=== PATIENT | male | born 1995 | race Two or more races ===

== ENCOUNTER 2024-10-10 10:29 | Emergency (ER) | payer BC, SELFPAY ==
--- NOTE | ~2024-10-10 | XR_ITS ---
EXAMINATION: XR CHEST 2 VIEWS HISTORY: congested COMPARISON: There are no prior studies for comparison. FINDINGS: PA and lateral views of the chest are submitted. The lungs are expanded and clear. There is no pleural effusion, pneumothorax, or pulmonary vascular congestion. The heart is normal in size. The bones are intact. XR/XR chest 2V IMPRESSION: Normal examination of the chest. Electronically signed by: Reji Lyn MD 10/10/2024 11:32 AM EDT
[2024-10-10 10:39] VITALS: BP 118/73; PULSE 83; RESP 18; TEMP 37; O2SAT 97; BMI 18.2
[2024-10-10 11:02] LABS: IDNOW Serial# 58CA691E; Strep A Nucleic Acid Negative (Negative)
[2024-10-10 11:32] LABS: Influenza A PCR POSITIVE (Negative); Influenza B PCR NEGATIVE (Negative); Resp Syncy Virus RNA Qual PCR NEGATIVE (Negative); SARS COV2 PCR INHOUSE NEGATIVE (Negative)
--- NOTE | 2024-10-10 11:43 | ED.URI ---
HPI - URI/Sore Throat General Chief Complaint: Upper Respiratory Symptoms Stated Complaint: Asthma Attacks, Trouble Breathing, Congested Time Seen by Provider: 10/10/24 11:52 Source: patient and RN notes reviewed Mode of arrival: ambulatory Limitations: no limitations History of Present Illness ED Provider: Elizabeth Monaco PA-C HPI Narrative: This is a 28-year-old male, with a history of asthma, who presents emergency department with complaints of body aches, congestion, cough for the last 3 days. Patient states that his symptoms started 3 days ago, reporting intermittent subjective fevers and chills. Did has any sick contacts. He has been using in his inhaler, and taking Mucinex which has provided him with some relief. Denies any severe chest pain, abdominal pain, nausea, vomiting or diarrhea. No urinary symptoms. No other complaints or concerns at this time. MD elicited complaint: fever (Subjective), cough, rhinorrhea and nasal congestion Pertinent past history: asthma Onset (ago): day(s) Consistency: constant Severity: moderate Exacerbating factors: nothing Relieving factors: nothing Associated symptoms: fever and chills Treatments prior to arrival: none Related Data Previous Rx's ?Medication ?Instructions ?Recorded acetaminophen 500 mg tablet 1,000 mg (2 x 500 mg) PO Q8H PRN 10/10/24 (Tylenol Extra Strength) fever or pain #30 tabs albuterol sulfate 90 mcg/actuation 2 puff inhalation Q4-6H PRN 10/10/24 aerosol inhaler shortness of breath or wheezing #8.5 grams ibuprofen 600 mg tablet 600 mg PO Q6H PRN pain #30 tabs 10/10/24 Allergies Allergy/AdvReac Type Severity Reaction Status Date / Time No Known Allergies Allergy Verified 10/10/24 10:41 Review of Systems Review of Systems: Yes all other systems are reviewed and are negative Constitutional: Constitutional: Reports as per [facility] Social History Social History Advance Directives: No Advance Directives Information Provided: Yes Physical Exam Vital Signs: Vital Signs: Last Vital Signs Temp 98.6 F 10/10/24 10:39 Pulse 83 10/10/24 10:39 Resp 18 10/10/24 10:39 BP 118/73 10/10/24 10:39 Pulse Ox 97 10/10/24 10:39 O2 Del Method Room Air 10/10/24 10:39 BMI result Body Mass Index 18.2 Const: General: cooperative, comfortable and no acute distress Orientation/consciousness: patient oriented x3 Limitations: no limitations HEENT: Head: Yes normal to inspection, Yes normocephalic and Yes atraumatic Ears: hearing grossly normal bilaterally and TM's normal bilaterally General nose exam: Normal external nose present Face and sinus: Yes normal facial exam Mouth: Normal oral and palatal mucosa present, oropharynx normal and moist mucous membranes Throat: Yes posterior oropharynx normal, Yes tonsils normal and Yes uvula midline Eyes: General: appearance normal, both eyes and all related structures Eyelids: Yes eyelids normal Conjunctivae: conjunctivae normal Sclerae: sclerae normal Pupils: Equal, round and reactive pupils present EOM: EOMs intact bilaterally Neck: Neck: Yes normal visual inspection, Yes full ROM and Yes no lymphadenopathy Lymphatic: no lymphadenopathy noted Chest: Chest palpation & inspection: normal inspection of the chest Resp: Effort & Inspection: normal respiratory effort and able to speak in complete sentences Auscultation: clear to auscultation bilaterally, no crackles, no rales, no rhonchi and no wheezes Cardio: Rate: regular rate Rhythm: regular rhythm Heart sounds: S1 normal heart sound present and S2 normal heart sound present GI: Inspection: Yes normal to inspection Skin: General skin exam: no rashes or lesions noted Trauma: no lacerations or abrasions Wounds: no wounds Neuro: General: patient oriented x3 and moves all extremities Cranial nerves: Yes Equal, round and reactive pupils present Extrem: General: Yes normal to inspection Right upper extremity: normal to inspection Left upper extremity: normal to inspection Right lower extremity: normal to inspection Left lower extremity: normal to inspection Medical Decision Making Medical Decision Making [facility] Narrative: This is a 28-year-old male who presents emergency department with complaints of cough, congestion for the last 3 days. On arrival, vital signs within normal limits. He is speaking full sentences under no acute distress. Lungs are clear to auscultation bilaterally. Differential diagnoses include URI, flu, COVID, RSV, pneumonia, strep. Chest x-ray was ordered to rule out pneumonia. Viral swabs positive for influenza A. This is consistent with his findings. She stressed the importance of staying well hydrated, and getting plenty of rest. Also prescribed ibuprofen and Tylenol as needed for pain and fevers. Given strict return precautions. He understands and agrees with plan. Patient stable for discharge. Differential Diagnosis Differential Diagnoses: The differential diagnosis associated with the presentation includes See above Lab Data MDM Lab Attestation statement: I reviewed the patient's lab results. Positive influenza Labs: Lab Results 10/10/24 Range/Units 10:47 Influenza Type A (PCR) POSITIVE A (Negative) Influenza Type B (PCR) NEGATIVE (Negative) RSV RNA Qual (PCR) NEGATIVE (Negative) SARS-CoV-2 RNA (RT-PCR) NEGATIVE (Negative) S. pyogenes GrpA ADITYA Negative (Negative) Radiology Impression Discussion of test interpretation with radiology: I have reviewed the radiologist's reading. Radiologist Impression: HISTORY: congested COMPARISON: There are no prior studies for comparison. FINDINGS: PA and lateral views of the chest are submitted. The lungs are expanded and clear. There is no pleural effusion, pneumothorax, or pulmonary vascular congestion. The heart is normal in size. The bones are intact. XR/XR chest 2V IMPRESSION: Normal examination of the chest. Electronically signed by: Reji Lyn MD 10/10/2024 11:32 AM EDT RP Dictated By: Reji Lyn MD Discharge Plan Discharge Clinical Impression: Influenza A Patient Disposition: Home, Self-Care Instructions: Influenza (ED) Additional Instructions: You were seen in the emergency department today and tested positive for influenza A. Influenza A also known as the flu is a virus that causes cough, fevers, body aches, and other symptoms. Your x-ray does not show a pneumonia. You are out of the window for a medication called Tamiflu which can help shorten the duration of your symptoms. It is very important that you get plenty of rest, drink plenty of fluids, and alternate between ibuprofen and Tylenol as needed for fevers and chills. If any new or worsening symptoms occur including but not limited to severe chest pain, shortness of breath, please seek emergent care. Please continue using your inhaler at home. Prescriptions: New ibuprofen 600 mg tablet 600 mg PO Q6H PRN (Reason: pain) Qty: 30 0RF acetaminophen [Tylenol Extra Strength] 500 mg tablet 1,000 mg PO Q8H PRN (Reason: fever or pain) Qty: 30 0RF albuterol sulfate 90 mcg/actuation HFA aerosol inhaler 2 puff inhalation Q4-6H PRN (Reason: shortness of breath or wheezing) Qty: 8.5 0RF Stand Alone Forms: Work/School Release Discharge Date/Time: 10/10/24 12:00 Print Language: Macedonian
== END 2024-10-10 12:00 | disposition home or self-care (01) ==
LOC: HO.ED 11:53
PROVIDERS: Emergency Provider Emergency Medicine
DX: J10.1 Influenza due to other identified influenza virus with other respiratory manifestations (principal); Z03.818 Encounter for observation for suspected exposure to other biological agents ruled out; J45.909 Unspecified asthma, uncomplicated
CPT/HCPCS: 0241U; 71046; 87651; 99281; 99283

== ENCOUNTER → 2024-10-10 10:43 | Outpatient (BNV) | payer BC, SELFPAY | PROVIDERS: Emergency Provider Emergency Medicine; Visit Provider Radiology Diagnostic Radiology | DX: R09.89 Other specified symptoms and signs involving the circulatory and respiratory systems (principal) | CPT/HCPCS: 71046 ==

== ENCOUNTER 2024-10-12 19:46 | Emergency (ER) | payer BC, SELFPAY ==
[2024-10-12 19:53] VITALS: BP 129/76; PULSE 89; RESP 16; TEMP 36.7; O2SAT 98; BMI 18.0
--- NOTE | 2024-10-12 19:53 | ED_ITS ---
HPI - Ear Problem General Chief complaint: Ear Problems Stated complaint: left ear deafness Time Seen by Provider: 10/12/24 22:43 Source: patient, RN notes reviewed and old records reviewed Mode of arrival: ambulatory Limitations: no limitations History of Present Illness ED Provider: Jayme BHAKTA Narrative: 28-year-old male presents for evaluation of left ear pain. Patient was seen here 2 days ago for flu-like symptoms. He reports that when the provider looked in his ear they told him that he had a lot of ear wax and to not try and clear it out with a Q-tip. The patient admits that he did not listen to this advice and he used a Q-tip to try and remove the ear wax Since he did that he reports increased pain to the left ear and he can not hear out of the ear Related Data Previous Rx's ?Medication ?Instructions ?Recorded acetaminophen 500 mg tablet 1,000 mg (2 x 500 mg) PO Q8H PRN 10/10/24 (Tylenol Extra Strength) fever or pain #30 tabs albuterol sulfate 90 mcg/actuation 2 puff inhalation Q4-6H PRN 10/10/24 aerosol inhaler shortness of breath or wheezing #8.5 grams ibuprofen 600 mg tablet 600 mg PO Q6H PRN pain #30 tabs 10/10/24 amoxicillin 500 mg tablet 500 mg PO Q8H #21 tabs 10/12/24 Allergies Allergy/AdvReac Type Severity Reaction Status Date / Time No Known Allergies Allergy Verified 10/12/24 19:59 Review of Systems ENT: Reports ear discharge and Reports otalgia PMFSH Social History Social History Advance Directives: No Advance Directives Information Provided: Yes Physical Exam Vital Signs: Vital Signs: Last Vital Signs Temp 97.6 F 10/12/24 22:13 Pulse 69 10/12/24 22:13 Resp 16 10/12/24 22:13 BP 112/57 L 10/12/24 22:13 Pulse Ox 98 10/12/24 22:13 O2 Del Method Room Air 10/12/24 22:13 BMI result Body Mass Index 18.0 Const: General: healthy appearing, comfortable, no acute distress, alert and awake Nutritional Appearance: well nourished Orientation/consciousness: patient oriented x3 HEENT: Other: Patient has a large cerumen impaction completely occluding the left ear canal Head: Yes normocephalic and Yes atraumatic Eyes: Eyelids: Yes eyelids normal Conjunctivae: conjunctivae normal Sclerae: sclerae normal Corneas: corneas normal Pupils: Equal, round and reactive pupils present EOM: EOMs intact bilaterally Neck: Neck: Yes full ROM Resp: Effort & Inspection: normal respiratory effort, able to speak in complete sentences and not labored Skin: General skin exam: elasticity normal Neuro: General: patient oriented x3 Cranial nerves: Yes Equal, round and reactive pupils present and Yes Bilaterally intact EOM present Cognition (Neuro): normal cognition Course Course Course Narrative: This is a Rapid Medical Examination (RME) performed by Marcella Eid PA-C in triage. Full HPI, ROS, assessment and treatment plan per primary provider in the Main ED. 10/12/241953 SALOMÓN Crump Hx: 28 yo male here for eval of left ear pain since yesterday. Admits to attempting to clean out his ear with a Q-tip. Also tried ear wax drops at home w/o improvement. PE/vitals: Well-appearing. There is noted cerumen impaction to left ear. Can not visualize TM. Plan: Further eval and irrigation and back Procedures Procedure Narrative Procedure Narrative: I was unable to visualize the tympanic membrane due to cerumen impaction. I used a solution of hydrogen peroxide with warm water to irrigate the left ear. I irrigated with approximately 200 cc of the solution. Initially small amounts of cerumen was rinsing out. I was unable to use a curette to remove a very large amount of cerumen from the left ear. On re-evaluation the tympanic membrane was erythematous but intact. External ear canal is clear postprocedure Medical Decision Making Medical Decision Making MDM Narrative: See procedure note for cerumen removal. Given the erythematous TM, it is unclear if this is from trauma from the patient trying to remove cerumen himself or from otitis media, we will put him on amoxicillin 3 times a day for 1 week Differential Diagnosis Differential Diagnoses: The differential diagnosis associated with the presentation includes Otitis media Otitis externa Pharyngitis Cerumen impaction Discharge Plan Discharge Clinical Impression: Otitis media Patient Disposition: Home, Self-Care Instructions: Ear Infection (ED) Additional Instructions: You may use Debrox ear drops as directed to help remove ear wax. You should not stick anything in your ears Take amoxicillin 3 times a day for 1 week Follow-up with your primary doctor Prescriptions: New amoxicillin 500 mg tablet 500 mg PO Q8H Qty: 21 0RF No Action ibuprofen 600 mg tablet 600 mg PO Q6H PRN (Reason: pain) Qty: 30 0RF acetaminophen [Tylenol Extra Strength] 500 mg tablet 1,000 mg PO Q8H PRN (Reason: fever or pain) Qty: 30 0RF albuterol sulfate 90 mcg/actuation HFA aerosol inhaler 2 puff inhalation Q4-6H PRN (Reason: shortness of breath or wheezing) Qty: 8.5 0RF Print Language: Malay
[2024-10-12 22:13] VITALS: BP 112/57; PULSE 69; RESP 16; TEMP 36.4; O2SAT 98
[2024-10-12 23:54] VITALS: BP 124/58; PULSE 69; RESP 16; TEMP 36.6; O2SAT 98
== END 2024-10-12 23:55 | disposition home or self-care (01) ==
PROVIDERS: Emergency Provider Emergency Medicine
DX: H66.92 Otitis media, unspecified, left ear (principal); H92.02 Otalgia, left ear
CPT/HCPCS: 99283; 99284

== ENCOUNTER 2024-12-31 13:40 | Emergency (ER) | payer SELFPAY ==
[2024-12-31 13:51] VITALS: BP 122/72; BP 141/83; PULSE 60; PULSE 75; RESP 18; TEMP 36.8; O2SAT 100; O2SAT 99; BMI 17.7
[2024-12-31 14:02] VITALS: BP 141/83; PULSE 60; RESP 18; TEMP 36.8; O2SAT 100
--- NOTE | 2024-12-31 14:11 | ED.NAVMDI ---
HPI - Nausea/Vomiting/Diarrhea General Chief complaint: Weakness Stated complaint: N,V,D, WEAKNESS Time Seen by Provider: 12/31/24 13:51 Source: patient Mode of arrival: ambulatory Limitations: no limitations History of Present Illness HPI Narrative: This is 29 years old male presented to the ED complaining of nausea vomiting unable to keep any fluids down MD elicited complaint: nausea and vomiting Onset (ago): day(s) (1) Description of vomiting: watery Associated nausea: Yes Location of pain: none Quality: cramping Exacerbating factors: none Related Data Previous Rx's ?Medication ?Instructions ?Recorded acetaminophen 500 mg tablet 1,000 mg (2 x 500 mg) PO Q8H PRN 10/10/24 (Tylenol Extra Strength) fever or pain #30 tabs albuterol sulfate 90 mcg/actuation 2 puff inhalation Q4-6H PRN 10/10/24 aerosol inhaler shortness of breath or wheezing #8.5 grams ibuprofen 600 mg tablet 600 mg PO Q6H PRN pain #30 tabs 10/10/24 amoxicillin 500 mg tablet 500 mg PO Q8H #21 tabs 10/12/24 ondansetron HCl 4 mg tablet 4 mg PO Q8H PRN nausea and 12/31/24 vomiting #10 tabs Allergies Allergy/AdvReac Type Severity Reaction Status Date / Time No Known Allergies Allergy Verified 12/31/24 13:56 Review of Systems Constitutional: Constitutional: Reports no additional constitutional complaints Respiratory: Respiratory: Reports no additional respiratory complaints Gastrointestinal: Gastrointestinal: Reports as per HPI and Reports nausea PMFSH Social History Social History Alcohol intake: current Smoked in Last 30 Days: Yes Use of substances other than those prescribed or required for medical reasons: No Substance Use Type: Marijuana Advance Directives: No Advance Directives Information Provided: Yes Do you have a plan to hurt others: No Plan Physical Exam Vital Signs: Vital Signs: Last Vital Signs Temp 98.2 F 12/31/24 14:02 Pulse 60 12/31/24 14:02 Resp 18 12/31/24 14:02 BP 141/83 H 12/31/24 14:02 Pulse Ox 100 12/31/24 14:02 O2 Del Method Room Air 12/31/24 14:02 BMI result Body Mass Index 17.7 No acute distress looks well Const: General: cooperative Nutritional Appearance: average body habitus Orientation/consciousness: oriented to time Limitations: no limitations HEENT: Head: Yes normal to inspection General nose exam: Normal external nose present Face and sinus: Yes normal facial exam Mouth: Normal oral and palatal mucosa present Throat: Yes posterior oropharynx normal Neck: Other: Supple neck Neck: Yes normal visual inspection Chest: Chest palpation & inspection: normal inspection of the chest Resp: Effort & Inspection: normal respiratory effort Auscultation: clear to auscultation bilaterally Cardio: Rate: regular rate GI: Inspection: Yes normal to inspection Palpation (GI): Soft to palpation, not firm and nontender Skin: General skin exam: no rashes or lesions noted and elasticity normal Lesions: no lesions Rashes: no rashes Neuro: General: oriented to time Course Reevaluation(s) Reevaluation #1: On re-examination she is feeling much better tolerating p.o. well labs normal anticipate discharge Time: 15:57 Medications Administered Discontinued Medications Generic Name Dose Route Start Last Admin Trade Name Freq PRN Reason Stop Dose Admin Sodium Chloride 1,000 mls @ 999 mls/hr 12/31/24 14:15 12/31/24 14:16 Ns IVCONT 12/31/24 15:15 999 mls/hr .Q1H1M KENNA Administration Ondansetron HCl 4 mg 12/31/24 14:10 12/31/24 14:19 Ondansetron Hcl 4 Mg/2 Ml Vial IVPUSH 12/31/24 14:11 4 mg ONCE ONE Administration Medical Decision Making Medical Decision Making [facility] Narrative: Patient is here complaining of nausea vomiting and diarrhea we will administer IV fluid antiemetic 15:58 asymptomatic tolerating p.o. well clinical picture is more consistent with a viral syndrome anticipate discharge Differential Diagnosis Differential Diagnoses: The differential diagnosis associated with the presentation includes Differential diagnosis gastroenteritis/colitis viral syndrome Admission/Observation Consideration of admission/observation: Escalation of care including admission/observation considered Lab Data [facility] Lab Attestation statement: I reviewed the patient's lab results. 12/31/24 14:14 12/31/24 14:43 Labs: Lab Results 12/31/24 12/31/24 Range/Units 14:14 14:43 WBC 10.6 (4.8-10.8) X10*3/uL RBC 5.61 (4.60-5.80) X10*6/uL Hgb 16.7 (14.0-18.0) g/dl Hct 48.9 (42.0-52.0) % MCV 87.2 (80.0-98.0) fL MCH 29.8 (27.0-33.0) pg MCHC 34.2 (31.0-36.0) g/dl RDW 12.7 (11.0-16.0) % Plt Count 212 (160-400) X10*3/uL MPV 10.0 (9.4-12.4) fL Immature Gran % (Auto) 0.2 (0.0-0.4) % Neut % (Auto) 78.2 H (45-73) % Lymph % (Auto) 14.3 L (20-40) % Holt % (Auto) 6.6 (2-11) % Eos % (Auto) 0.2 (0-4) % Baso % (Auto) 0.5 (0-2) % Lymph # (Auto) 1.5 (1.2-4.9) X10*3/uL Holt # (Auto) 0.7 (0.1-1.2) X10*3/uL Eos # (Auto) 0.0 (0.0-0.4) X10*3/uL Baso # (Auto) 0.1 (0.0-0.2) X10*3/uL Abs Immat Gran (auto) 0.02 (0.00-0.03) X10*3/uL Absolute Neuts (auto) 8.3 (2.0-8.3) x10*3/uL Absolute Nucleated RBC 0.000 (0.0-0.012) X10*3/uL Nucleated RBC % (auto) 0.0 (0.0-0.2) /100WBC Sodium 140 (135-145) mmol/L Potassium 3.7 (3.3-5.1) mmol/L Chloride 106 (96-108) mmol/L Carbon Dioxide 24 (22-29) mmol/L Anion Gap 14 (12-20) BUN 10 (9-16) mg/dL Creatinine 0.90 (0.5-1.4) mg/dL Estim Creat Clear Calc 92.5 Estimated GFR > 60 Random Glucose 94 (60-115) mg/dL Calcium 9.5 (8.4-10.2) mg/dL Total Bilirubin 0.9 (0.0-1.0) mg/dL AST 24 (5-37) U/L ALT 12 (0-40) U/L Alkaline Phosphatase 69 (39-117) U/L Total Protein 7.7 (6.5-8.0) g/dL Albumin 4.8 (3.5-5.0) g/dL Discharge Plan Discharge Clinical Impression: Vomiting Qualifiers: Vomiting type: unspecified Nausea presence: with nausea Qualified Code(s): R11.2 - Nausea with vomiting, unspecified Patient Disposition: Home, Self-Care Instructions: Acute Nausea and Vomiting (DC) Prescriptions: New ondansetron HCl 4 mg tablet 4 mg PO Q8H PRN (Reason: nausea and vomiting) Qty: 10 0RF No Action ibuprofen 600 mg tablet 600 mg PO Q6H PRN (Reason: pain) Qty: 30 0RF acetaminophen [Tylenol Extra Strength] 500 mg tablet 1,000 mg PO Q8H PRN (Reason: fever or pain) Qty: 30 0RF albuterol sulfate 90 mcg/actuation HFA aerosol inhaler 2 puff inhalation Q4-6H PRN (Reason: shortness of breath or wheezing) Qty: 8.5 0RF amoxicillin 500 mg tablet 500 mg PO Q8H Qty: 21 0RF Print Language: Senegalese
[2024-12-31 14:19] LABS: MANUAL DIFF FLAG NO
[2024-12-31 14:20] LABS: Hematocrit 48.9 % (42.0-52.0); Hemoglobin 16.7 g/dl (14.0-18.0); Imm Gran Abs Auto 0.02 X10*3/uL (0.00-0.03); Imm Gran Pct Auto 0.2 % (0.0-0.4); Lymphocytes Absolute Auto 1.5 X10*3/uL (1.2-4.9); Mean Corpuscular HGB Conc 34.2 g/dl (31.0-36.0); Mean Corpuscular Hemoglobin 29.8 pg (27.0-33.0); Mean Corpuscular Volume 87.2 fL (80.0-98.0); NRBC Abs Auto 0.000 X10*3/uL (0.0-0.012); NRBC Pct Auto 0.0 /100WBC (0.0-0.2); Platelet Count 212 X10*3/uL (160-400); Red Blood Count 5.61 X10*6/uL (4.60-5.80); White Blood Count 10.6 X10*3/uL (4.8-10.8)
--- NOTE | 2024-12-31 14:21 | PC.NURSE ---
29 M presents to ED with n/v/d weakness since last night after fishing and eating some food that didn't agree with him. Sts today feels weak, ongoing n/v. Sts some upper central abdominal pain. RR even and unlabored, denies SOB. RR even and unlabored. Pt denies any other complaints. A+OX4 and ambulatory but feels light headed, dizzy, weak at this time.
[2024-12-31 15:09] LABS: Alanine Aminotransferase 12 U/L (0-40); Albumin Level 4.8 g/dL (3.5-5.0); Alkaline Phosphatase 69 U/L (39-117); Anion Gap 14 (12-20); Aspartate Amino Transferase 24 U/L (5-37); Blood Urea Nitrogen 10 mg/dL (9-16); Calcium 9.5 mg/dL (8.4-10.2); Carbon Dioxide 24 mmol/L (22-29); Chloride 106 mmol/L (96-108); Creatinine Clr Calc Pharmacy 92.5; Estimated Glomerular Filt Rate > 60; Potassium 3.7 mmol/L (3.3-5.1); Sodium 140 mmol/L (135-145); Total Protein 7.7 g/dL (6.5-8.0)
--- NOTE | 2024-12-31 16:24 | PC.NURSE ---
vss, pt reports that he is feeling better, denies pain at this time, agreeable to discharge. reviewed medications sent to pharmacy. after reviewing paperwork, pt expressed frustration at not having shoes w him - visitor at bedside unable to drive patient home. offered pt hospital socks. pt attempting to call for a ride home, explained that buses are currently free for transport.
[2024-12-31 16:26] VITALS: BP 112/80; PULSE 76; RESP 16; TEMP 37.1; O2SAT 99
== END 2024-12-31 16:27 | disposition home or self-care (01) ==
PROVIDERS: Emergency Provider Emergency Medicine
DX: R11.2 Nausea with vomiting, unspecified (principal); Z79.899 Other long term (current) drug therapy
CPT/HCPCS: 36415; 80053; 85025; 96361; 96374; 99284; J2405

== ENCOUNTER 2025-04-16 07:31 | Emergency (ER) | payer OTHER, SELFPAY ==
[2025-04-16 07:34] VITALS: BP 162/93; PULSE 100; RESP 20; TEMP 37.2; O2SAT 98; BMI 19.2
--- NOTE | 2025-04-16 10:14 | ED_ITS ---
HPI - Eye Problem General Chief complaint: Eye Problems Stated complaint: Vision loss R eye Time Seen by Provider: 04/16/25 10:14 Source: patient, RN notes reviewed and old records reviewed Mode of arrival: ambulatory Limitations: no limitations History of Present Illness ED Provider: PURVI Panchal HPI Narrative: 29-year-old male without significant medical history presents to the ED due to 2 weeks of pain and blurry vision of the right eye. Patient reports about 2 weeks ago he noticed a small ?pimple? in the inner rim of the right lower eyelid, and used tweezers to pop the area. Patient reports he was able to get a small amount of ?bloody liquid fluid? from the right eye after popping the area. Patient states right after this he applied Neosporin to the area. Patient r eports area had been improving. Patient reports yesterday he noticed some pain in the area with mucous in the tear duct area that he had to wipe away with some blurry vision. Patient reports he has been rubbing the eye but has been trying to avoid this. Related Data Previous Rx's ?Medication ?Instructions ?Recorded acetaminophen 500 mg tablet 1,000 mg (2 x 500 mg) PO Q 8H PRN 10/10/24 (Tylenol Extra Strength) fever or pain #30 tabs albuterol sulfate 90 mcg/actuation 2 puff inhalation Q 4-6H PRN 10/10/24 aerosol inhaler shortness of breath or wheez ing #8.5 grams ibuprofen 600 mg tablet 600 mg PO Q6H PRN pain #30 t abs 10/10/24 amoxicillin 500 mg tablet 500 mg PO Q8H #21 tabs 10/12 ondansetron HCl 4 mg tablet 4 mg PO Q8H PRN nausea and 12/31/24 vomiting #10 tabs erythromycin 5 mg/gram (0.5 %) eye 1 appl ophthalmic ( eye) Q6H #3.5 04/16/25 ointment grams Allergies Allergy/AdvReac Type Severity Reaction Status Date / Time No Known Allergies Allergy Verified 04/16/25 07:35 Review of Systems Review of Systems: CONST: Negative for fever, body aches and chills. HENT: Negative for neck pain/stiffness, headache, congestion, sore throat, swelling. EYES: Negative for discharge/pain or vision changes. POS R eye itching, pain, blurry vision RESP: Negative for cough/hemoptysis and shortness of breath. CV: Negative chest pain, difficulty breathing, palpitations. ABD: Negative pain, nausea, vomiting. : Negative increase frequency, dysuria, blood in urine or stool. MUSC: Negative for muscle aches, edema. SKIN: Negative rash, lesions/sores. NEURO: Negative headache, dizziness, weakness. PMFSH Social History Social History Alcohol intake: current Substance Use Type: Marijuana Advance Directives: No Advance Directives Information Provided: Yes Physical Exam Vital Signs: Vital Signs: Last Vital Signs Temp 98.9 F 04/16/25 07:34 Pulse 100 04/16/25 07:34 Resp 14 04/16/25 12:00 BP 162/93 H 04/16/25 07:34 Pulse Ox 98 04/16/25 07:34 O2 Del Method Room Air 04/16/25 07:34 BMI result Body Mass Index 19.2 GENERAL APPEARANCE: ?AxOx4, generally well-appearing, no acute distress. HEENT: ?NC, AT. MMM. EOMI, clear conjunctiva, oropharynx clear. NECK: ?Supple without lymphadenopathy.? No stiffness or restricted ROM. HEART:? Normal rate and regular rhythm, normal S1/S2, no m/r/g LUNGS:? CTAB, moving air well. No crackles or wheezes are heard. EXTREMITIES: ?Without cyanosis, clubbing or edema. NEUROLOGICAL: ?Grossly nonfocal. Alert and oriented, moving all 4 extremities. Observed to ambulate with normal gait. Skin: ?Warm and dry without any rash. Medications Administered Discontinued Medications Generic Name Dose Route Start Last Admin Trade Name Nelly PRN Reason Stop Dose Admin Fluorescein Sodium 1 strip 04/16/25 10:31 04/16/25 11:49 Fluorescein Sodium Strip EYE-RIGHT 04/16/25 10:32 1 strip ONCE ONE Administration Tetracaine HCl 3 drop 04/16/25 11:30 04/16/25 11:49 Tetracaine Hcl/Pf 0.5% Oph Mary 4 Ml Drops EYE-RIGHT 04/16/25 11:31 3 drop ONCE ONE Administration Medical Decision Making Medical Decision Making MDM Narrative: 29-year-old male without significant medical history presents to the ED due to 2 weeks of pain and blurry vision of the right eye. Patient reports about 2 weeks ago he noticed a small ?pimple? in the inner rim of the right lower eyelid, and used tweezers to pop the area. Patient reports he was able to get a small amount of ?bloody liquid fluid? from the right eye after popping the area. Patient states right after this he applied Neosporin to the area. Patient reports area had been improving. Patient reports yesterday he noticed some pain in the area with mucous in the tear duct area that he had to wipe away with some blurry vision. Patient reports he has been rubbing the eye but has been trying to avoid this. Physical exam reveals conjunctiva is clear, without chemosis, exudates, or increased discharge from eye, EOMI, pupils reactive to consensual light reflex and accommodation, there is no black out of vision when testing the visual field. Visual acuity: R eye- 20/40 L eye- 20/30. Patient reports history of needing corrective optical lenses since he was a child but does not use glasses or contacts. Tonometry reveals appropriate pressure of the R eye at 17mmHg Fluorescein stain and Barron lamp reveals uptake of the lateral sclera at approximately 10 o clock position. Wood's lamp exam positive for corneal epithelial defect at the approximate 10 o'clock position consistent with corneal abrasion. No evidence of foreign body, ulcer, hyphema, hypopyon. Pupils are equal and reactive, EOMI. Patient will be discharged with erythromycin ophthalmic ointment. Patient states he has primary care doctor, but has not become established with their office. Patient has been hypertensive while in the department with pressure of 162/93. When discussing this with the patient he states that he is very anxious in the department and has been here for a very long time. He also states he has recently stopped smoking cigarettes 9 days ago, however in this situation he would like to smoke a cigarette and contributes his elevated pressure is due to these reasons. Patient states he has familial history of hypertension, but has never had to be on hypertensive medications. I counseled patient to follow up with his primary care to ensure resolution of his eye pain, and discuss hypertension. I counseled patient on strict return precautions, and instructed him to return to the emergency department if no improvement in pain or vision. Patient well enough to go home for self care. Patient in agreement with the plan. Differential Diagnosis Differential Diagnoses: The differential diagnosis associated with the presentation includes Corneal abrasion Corneal ulcer Cece Tello chalazion conjunctivitis Admission/Observation Consideration of admission/observation: Escalation of care including admission/observation considered Lab Data MDM Lab Attestation statement: I reviewed the patient's lab results. External Record Review External record reviewed: Inpatient record, Office record and Outpatient record Chronic Conditions Patient?s care impacted by: Other (No known medical history) Social Determinants Patient?s care significantly limited by Social Determinants of Health including: Other Social Determinant of Health Discharge Plan Discharge Clinical Impression: Corneal abrasion Patient Disposition: Home, Self-Care Additional Instructions: You were evaluated in the emergency department today due to right eye pain and blurry vision. Your visual acuity test of the right eye showed a 20/40 vision, left eye showed 20/30 without significant deficits in your field of vision. Your physical exam was reassuring as the eye had appropriate pupilary reactions without pain or restriction with movement. Tonometry which is used to test the pressure within the eye was normal with a pressure of 17mmHg. The Barron lamp test revealed uptake of dye at the 10 o clock position. These findings are c onsistent with a superficial abrasion of the cornea. You are being prescribed 5 day course of erythromycin ophthalmic ointment that you will apply to the right eye every 6 hours. To manage pain at home you can take 500 mg of Tylenol and 400 mg of ibuprofen every 6 hours. Additionally, you can do warm compresses several times throughout the day to the right eye. Please follow up with your primary care doctor to discuss elevated blood pressure, and to ensure resolution of eye pain. Please return to the emergency department if you experience worsening right eye pain, worsening visual changes of the right eye, increased discharge of the right eye, or any new/worsening/concerning symptoms. Prescriptions: New erythromycin 5 mg/gram (0.5 %) ointment 1 appl ophthalmic (eye) Q6H Qty: 3.5 0RF No Action ibuprofen 600 mg tablet 600 mg PO Q6H PRN (Reason: pain) Qty: 30 0RF acetaminophen [Tylenol Extra Strength] 500 mg tablet 1,000 mg PO Q8H PRN (Reason: fever or pain) Qty: 30 0RF albuterol sulfate 90 mcg/actuation HFA aerosol inhaler 2 puff inhalation Q4-6H PRN (Reason: shortness of breath or wheezing) Qty: 8.5 0RF amoxicillin 500 mg tablet 500 mg PO Q8H Qty: 21 0RF ondansetron HCl 4 mg tablet 4 mg PO Q8H PRN (Reason: nausea and vomiting) Qty: 10 0RF Print Language: Bulgarian
[2025-04-16] MEDS: Tetracaine HCl/PF 0.5% Oph Sol 4 ML DROPS 3 DROP EYE-RIGHT (11:49)
[2025-04-16] MEDS: Fluorescein Sodium STRIP 1 STRIP EYE-RIGHT (11:49)
[2025-04-16 12:00] VITALS: RESP 14
[2025-04-16 12:09] VITALS: BP 124/78; PULSE 77
[2025-04-16 12:44] VITALS: BP 124/78; PULSE 77; RESP 16; TEMP 36.3; O2SAT 97
== END 2025-04-16 12:45 | disposition home or self-care (01) ==
PROVIDERS: Emergency Provider Emergency Medicine; PCP Internal Medicine
DX: S05.01XA Injury of conjunctiva and corneal abrasion without foreign body, right eye, initial encounter (principal); X58.XXXA Exposure to other specified factors, initial encounter; Y93.9 Activity, unspecified; Y92.9 Unspecified place or not applicable
CPT/HCPCS: 99283

== ENCOUNTER 2025-04-19 04:04 | Emergency (ER) | payer OTHER, SELFPAY ==
[2025-04-19 04:05] VITALS: BP 114/71; PULSE 73; RESP 12; TEMP 36.7; O2SAT 98; BMI 19.2
--- NOTE | 2025-04-19 04:24 | ED_ITS ---
HPI - General Adult General Chief complaint: Eye Problems Stated complaint: Eye Problems Time Seen by Provider: 04/19/25 04:24 History of Present Illness ED Provider: Adamaris BHAKTA narrative: The patient is a 29-year-old male who was seen here 3 days ago for a problem with his right eye. He was thought to have a corneal abrasion and was prescribed erythromycin ointment. At the time he had also been complaining of some eyelid symptoms with discomfort and swelling in the lower eyelid. He returns today saying that he feels that the eye itself has gotten better but he has a new problem with the right eye upper eyelid. He feels there is some discomfort and swelling to the upper eyelid. He feels that his vision is better today than it was when he was here 3 days ago. Additionally the patient is worried about a possible sexually transmitted disease. He says that he has had the same female sexual partner for the last 10 months. He last had sex 2 months ago. He is worried that the eye symptoms could be related to an STD. He also says that he has occasionally been getting small lesions on his penis which are red and not very painful and transient. After arriving in the emergency room here today he discovered that he had 1 of these lesions on the chand of his penis today. He has no dysuria. No fever, sweats Related Data Previous Rx's ?Medication ?Instructions ?Recorded acetaminophen 500 mg tablet 1,000 mg (2 x 500 mg) PO Q 8H PRN 10/10/24 (Tylenol Extra Strength) fever or pain #30 tabs albuterol sulfate 90 mcg/actuation 2 puff inhalation Q 4-6H PRN 10/10/24 aerosol inhaler shortness of breath or wheez ing #8.5 grams ibuprofen 600 mg tablet 600 mg PO Q6H PRN pain #30 t abs 10/10/24 amoxicillin 500 mg tablet 500 mg PO Q8H #21 tabs 10/12 ondansetron HCl 4 mg tablet 4 mg PO Q8H PRN nausea and 12/31/24 vomiting #10 tabs erythromycin 5 mg/gram (0.5 %) eye 1 appl ophthalmic ( eye) Q6H #3.5 04/16/25 ointment grams doxycycline monohydrate 100 mg 100 mg PO BID 1 week #1 4 caps 04/19/25 capsule Allergies Allergy/AdvReac Type Severity Reaction Status Date / Time No Known Allergies Allergy Verified 04/19/25 04:09 Review of Systems Review of Systems: Yes all other systems are reviewed and are negative [facility] Social History Social History Alcohol intake: current Substance Use Type: Marijuana Advance Directives: No Advance Directives Information Provided: Yes Do you have a plan to hurt others: No Plan Physical Exam ED Vital Signs: Vital Signs - 24 hr 04/19/25 04:05 04/19/25 05:54 04/19/25 07:37 Temperature 98.0 F 98.2 F 98.2 F Pulse Rate 73 70 76 Respiratory Rate 12 16 16 Blood Pressure 114/71 109/85 116/75 Pulse Oximetry 98 100 98 Oxygen Delivery Method Room Air Room Air Room Air BMI result Body Mass Index 19.2 Const Other: The patient is a slim 29-year-old male who looks healthy and athletic. He seems anxious but not in acute distress. Orientation/consciousness: patient oriented x3 HENMT Other: Symmetrical. Mucous membranes are moist. The posterior pharynx is normal. Eyes Other: Pupils are round equal, conjunctivae are clear, extraocular movements intact. I do not see any definite hordoleum or chalazion on on the eyelids. There was no erythema to the eyelids. No soft tissue swelling of the eyelids. Pupils are round, equal, and reactive to light, extraocular movements are intact, I do not appreciate any definite conjunctival injection in the right eye. I do not see any foreign body. Slit-lamp exam shows a clear cornea and a clear anterior chamber. No perilimbal flushing. No corneal uptake with fluorescein staining. Neck Neck: Yes full ROM and Yes no lymphadenopathy Resp Effort & Inspection: normal respiratory effort Auscultation: clear to auscultation bilaterally Cardio Rate: regular rate Rhythm: regular rhythm Heart sounds: S1 normal heart sound present and S2 normal heart sound present GI Other: Abdomen is soft and nontender Other: External genitalia shows an unremarkable scrotum contents. There is a small vesicle like lesion on the left side of the chand of the head of the penis. An isolated lesion which is not very big and which has no drainage. The patient has a foreign body inserted under the skin of the dorsum of the penis. The foreign body has the shape of a candy heart. Skin Other: The skin is without rash aside from a single lesion on the left side of the chand of the head of the penis. General skin exam: no rashes or lesions noted Neuro General: patient oriented x3, gait normal, tone normal, moves all extremities, no focal motor deficits and CN's II-XI intact bilaterally Extrem Other: There is no calf swelling or tenderness. No asymmetry. No peripheral edema. Medications Administered Discontinued Medications Generic Name Dose Route Start Last Admin Trade Name Nelly PRN Reason Stop Dose Admin Doxycycline Monohydrate 100 mg 04/19/25 06:58 04/19/25 07:11 Doxycycline Monohydrate 100 Mg Capsule PO 04/19/25 06:59 100 mg ONCE ONE Administration Fluorescein Sodium 1 strip 04/19/25 04:34 04/19/25 05:10 Fluorescein Sodium Strip EYE-RIGHT 04/19/25 04:35 1 strip ONCE ONE Administration Tetracaine HCl 3 drop 04/19/25 04:33 04/19/25 05:10 Tetracaine Hcl/Pf 0.5% Oph Mary 4 Ml Drops EYE-RIGHT 04/19/25 04:34 3 drop ONCE ONE Administration Medical Decision Making Medical Decision Making [facility] Narrative: The patient is a 29-year-old male who presents complaining initially with symptoms related to the right eye, primarily the eyelids but who later expressed a lot of anxiety and concern about a possible sexually transmitted infection. He has a girlfriend who lives primarily in [place]. He says he has not had sex with her or anyone else in the last 2 months. He has been with this partner for 10 months. He has been monogamous during this time. Is seen a few days ago and diagnosed with a right corneal abrasion which might has been sustained while he might has been trying to squeeze some kind of a pustule on his eyelid. He was prescribed erythromycin ointment. He says that the eye itself in his vision both feel better but he is concerned that he may be getting some kind of an infection to the right upper eyelid. On exam I really do not appreciate any chalazion or hordeolum. The patient is also complaining at some length about his concern about a possible sexually transmitted infection. He has not had sex in 2 months. This would make an STI somewhat unlikely. Nevertheless he says that he has been doing a lot of Google searching and is very anxious. My overall impression is that the patient does not really have an acute right eye problem or even eyelid problems. Because of his concern about a possible sexually transmitted infection urine was swollen for GC and chlamydia testing. Additionally an RPR was sent test for syphilis. Additionally the patient has a very small red lesion on the chand of the head of the penis. I think this wo uld be a very unusual presentation of genital herpes (the patient says that he has had several episodes of a small lesion like this over the last several months). Nevertheless the lesion was swabbed for herpes testing. The patient's RPR was negative. GC and chlamydia are also negative. Given that chlamydia can often have a false negative he will be treated with a course of doxycycline. Otherwise he may be discharged. He has a first-time new appointment with a PCP, Dr. Gosia Aguillon, in early May. He may follow up with the Ophthalmology for his concern about his eyelids (my suspicion for any significant process is low, he will be advised to use warm compresses). You may also follow up with [facility] for any ongoing concerns about sexually transmitted infection. Lab Data Labs: Lab Results 04/19/25 04/19/25 Range/Units 05:12 06:08 Ur N gonorrhoeae DNA (PCR) NOT DETECTED (Not Detect.) T.pallidum Ab (EIA) Nonreactive (Nonreactive) Ur Chlamydia DNA (PCR) NOT DETECTED (Not Detect.) Discharge Plan Discharge Clinical Impression: Discomfort of right eye, Penile lesion Patient Disposition: Home, Self-Care Additional Instructions: At this point I think your eye itself looks fairly good. With regard to the symptoms you have in your eyelids you may wish to try warm compresses. To make a warm compress simply take a face cough or small towel and get it wet with fairly warm water and hold it to your eyelids for about 5 minutes. Do this several times a day. Please take the doxycycline 2 times a day for 1 week. This should cover you for the possibility of the infection of chlamydia. It is not clear if you have chlamydia but chlamydia can be hard to diagnose and I think it would be reasonable for you to take the antibiotics. Your syphilis test came back negative. Also your gonorrhea test came back negative. A test has been sent to see if the lesion on your penis might be herpes. I do not think it is very likely that this will be herpes. There is a clinic in [place] called [facility] which you may visit. This clinic focuses on sexually transmitted infections. They may be a helpful resource for you. I have also included the contact information for the local eye doctor. You may call his office for an appointment and a 2nd opinion with regard to your right eye symptoms. Also please plan on keeping your upcoming appointment with your new primary care doctor. Return to the emergency room if you feel significantly worse. Prescriptions: New doxycycline monohydrate 100 mg capsule 100 mg PO BID 7 Days Qty: 14 0RF No Action ibuprofen 600 mg tablet 600 mg PO Q6H PRN (Reason: pain) Qty: 30 0RF acetaminophen [Tylenol Extra Strength] 500 mg tablet 1,000 mg PO Q8H PRN (Reason: fever or pain) Qty: 30 0RF albuterol sulfate 90 mcg/actuation HFA aerosol inhaler 2 puff inhalation Q4-6H PRN (Reason: shortness of breath or wheezing) Qty: 8.5 0RF amoxicillin 500 mg tablet 500 mg PO Q8H Qty: 21 0RF ondansetron HCl 4 mg tablet 4 mg PO Q8H PRN (Reason: nausea and vomiting) Qty: 10 0RF erythromycin 5 mg/gram (0.5 %) ointment 1 appl ophthalmic (eye) Q6H Qty: 3.5 0RF Referrals: [facility] [Provider Group] Luis Suárez [Physician, Ophthalmology] Gosia Lewis MD [Primary Care Provider, Internal Medicine] Interventions: ED Discharge Assessment Last Done: 04/19/25 07:43 Print Language: Tuvaluan
[2025-04-19] MEDS: Tetracaine HCl/PF 0.5% Oph Sol 4 ML DROPS 3 DROP EYE-RIGHT (05:10)
[2025-04-19] MEDS: Fluorescein Sodium STRIP 1 STRIP EYE-RIGHT (05:10)
[2025-04-19 05:54] VITALS: BP 109/85; PULSE 70; RESP 16; TEMP 36.8; O2SAT 100
[2025-04-19 06:48] LABS: Syphilis Screen Nonreactive (Nonreactive)
[2025-04-19 06:52] LABS: CT PCR Urine NOT DETECTED (Not Detect.); NG PCR Urine NOT DETECTED (Not Detect.)
[2025-04-19 07:37] VITALS: BP 116/75; PULSE 76; RESP 16; TEMP 36.8; O2SAT 98
[2025-04-19 07:43] VITALS: BP 116/75; PULSE 76; RESP 16; TEMP 36.8; O2SAT 98
== END 2025-04-19 07:43 | disposition home or self-care (01) ==
PROVIDERS: Emergency Provider Emergency Medicine; PCP Internal Medicine
DX: H57.11 Ocular pain, right eye (principal); Z20.2 Contact with and (suspected) exposure to infections with a predominantly sexual mode of transmission; L98.9 Disorder of the skin and subcutaneous tissue, unspecified
CPT/HCPCS: 36415; 86780; 87255; 87491; 87591; 99283; 99284

== ENCOUNTER 2025-05-09 20:11 | Emergency (ER) | payer OTHER, SELFPAY ==
--- NOTE | 2025-05-09 | ECG_ITS ---
Test Reason : CHEST PAIN, SOB Blood Pressure : */* mmHG Vent. Rate : 71 BPM Atrial Rate : 71 BPM P-R Int : 152 ms QRS Dur : 96 ms QT Int : 372 ms P-R-T Axes : 62 82 59 degrees QTcB Int : 404 ms Normal sinus rhythm with sinus arrhythmia Normal ECG No previous ECGs available Referred By: Generic ED Physician Electronically Signed By: JAM CARRINGTON MD
--- NOTE | ~2025-05-09 | XR_ITS ---
CLINICAL HISTORY: chest pain, SOB 2 view chest x-ray. Comparison: CR/SR - XR CHEST 2 VIEWS - 10/10/24 11:28 EDT Findings: Heart size is normal. No consolidation or effusion. No acute fracture. The visualized upper abdomen is unremarkable. Impression: No acute cardiopulmonary process. This document has been electronically signed by: Kaye Fernandez MD on 05/09/2025 21:22:14
[2025-05-09 20:19] VITALS: BP 110/80; BP 120/70; PULSE 86; PULSE 88; RESP 18; TEMP 36.6; O2SAT 95; O2SAT 97; BMI 19.2
[2025-05-09 20:52] LABS: MANUAL DIFF FLAG NO
[2025-05-09 20:54] LABS: Hematocrit 44.5 % (42.0-52.0); Hemoglobin 14.8 g/dl (14.0-18.0); Imm Gran Abs Auto 0.02 X10*3/uL (0.00-0.03); Imm Gran Pct Auto 0.2 % (0.0-0.4); Lymphocytes Absolute Auto 3.6 X10*3/uL (1.2-4.9); Mean Corpuscular HGB Conc 33.3 g/dl (31.0-36.0); Mean Corpuscular Hemoglobin 30.3 pg (27.0-33.0); Mean Corpuscular Volume 91.2 fL (80.0-98.0); NRBC Abs Auto 0.000 X10*3/uL (0.0-0.012); NRBC Pct Auto 0.0 /100WBC (0.0-0.2); Platelet Count 220 X10*3/uL (160-400); Red Blood Count 4.88 X10*6/uL (4.60-5.80); White Blood Count 9.4 X10*3/uL (4.8-10.8)
[2025-05-09 21:08] LABS: Alanine Aminotransferase 23 U/L (0-40); Albumin Level 4.4 g/dL (3.5-5.0); Alkaline Phosphatase 64 U/L (39-117); Anion Gap 12 (12-20); Aspartate Amino Transferase 27 U/L (5-37); Blood Urea Nitrogen 18 mg/dL (9-16); Calcium 8.9 mg/dL (8.4-10.2); Carbon Dioxide 25 mmol/L (22-29); Chloride 107 mmol/L (96-108); Creatinine Clr Calc Pharmacy 92.7; Estimated Glomerular Filt Rate > 60; Magnesium 2.0 mg/dL (1.6-2.6); Potassium 4.1 mmol/L (3.3-5.1); Sodium 140 mmol/L (135-145); Total Protein 6.8 g/dL (6.5-8.0)
[2025-05-09 21:10] LABS: INTERNATIONAL NORM RATIO 0.9 (0.9-1.1); Prothrombin Time 10.5 SEC (11.2-13.5)
[2025-05-09 21:13] LABS: Partial Thromboplastin Time 29.9 SEC (26.7-34.1)
[2025-05-09 21:19] LABS: Troponin-I High Sensitivity < 2.7 ng/L (<3.5-35.0)
[2025-05-09 21:29] LABS: Resp Syncy Virus RNA Qual PCR NEGATIVE (Negative); SARS COV2 PCR INHOUSE NEGATIVE (Negative)
--- NOTE | 2025-05-09 22:30 | ED_ITS ---
HPI - General Adult General Chief complaint: Dyspnea Stated complaint: chest discomfort, HR 92, BP 120/71 GCS15 Time Seen by Provider: 05/09/25 22:12 Source: patient Mode of arrival: ambulatory Limitations: no limitations History of Present Illness ED Provider: Dr. Giovanna Forbes HPI narrative: patient comes to the emergency room complaining of palpitations for 3 days. Patient states that whenever he sleeps on the left side of his body, he has left-sided chest discomfort into specific spots on his chest. Patient denies any shortness of breath. Patient denies chest pain at this time, denies any injuries, denies heavy lifting. Related Data Previous Rx's ?Medication ?Instructions ?Recorded acetaminophen 500 mg tablet 1,000 mg (2 x 500 mg) PO Q 8H PRN 10/10/24 (Tylenol Extra Strength) fever or pain #30 tabs albuterol sulfate 90 mcg/actuation 2 puff inhalation Q 4-6H PRN 10/10/24 aerosol inhaler shortness of breath or wheez ing #8.5 grams ibuprofen 600 mg tablet 600 mg PO Q6H PRN pain #30 t abs 10/10/24 amoxicillin 500 mg tablet 500 mg PO Q8H #21 tabs 10/12 ondansetron HCl 4 mg tablet 4 mg PO Q8H PRN nausea and 12/31/24 vomiting #10 tabs erythromycin 5 mg/gram (0.5 %) eye 1 appl ophthalmic ( eye) Q6H #3.5 04/16/25 ointment grams doxycycline monohydrate 100 mg 100 mg PO BID 1 week #1 4 caps 04/19/25 capsule Allergies Allergy/AdvReac Type Severity Reaction Status Date / Time No Known Allergies Allergy Verified 05/09/25 20:22 Review of Systems 2 Review of Systems: Constitutional : No Weight loss, No Fever, No Chills, No Night Sweats, No Fatigue, No Malaise ENT/Mouth : No Hearing loss, No Ear Pain, No Nasal Congestion, No Sinus Pain, No Hoarseness, No sore throat, No Rhinorrhea, No Swallowing Difficulty Eyes: No Eye Pain, No Swelling, No Redness, No Foreign Body, No Discharge, No Vision Changes Cardiovascular : complaining of chest pain into specific spots on the chest, No SOB, No Dyspnea on Exertion, No Orthopnea, No Edema, No Palpitations Respiratory : No Cough, No Sputum, No Wheezing, No Smoke Exposure, No Dyspnea Gastrointestinal : No Nausea, No Vomiting, No Diarrhea, No Constipation, No abdominal Pain, No Hematochezia, No Melena Genitourinary : no irregular bleeding, No Dysuria, No Urinary Frequency, No Hematuria, No Urinary Incontinence, No Urgency, No Flank Pain, No Urinary Flow Changes, No Hesitancy Musculoskeletal : No joint pain, No Myalgias, No Joint Swelling Skin : No Skin Lesions, No rash Neuro : No Weakness, No Numbness, No Paresthesias, No Loss of Consciousness, No Dizziness, No Headache Psych : No Anxiety/Panic, No Depression, No SI/HI/AH/VH, No Social Issues, Heme/Lymph: No Bruising, No Bleeding,No Lymphadenopathy Endocrine : No Polyuria, No Polydipsia, No Temperature Intolerance [facility] Social History Social History Alcohol intake: current Substance Use Type: Marijuana Advance Directives: No Advance Directives Information Provided: Yes Physical Exam ED Exam Exam: Appearance: Alert. Oriented X3. No acute distress. Eyes: Pupils equal, round and reactive to light. ENT: Pharynx normal. Neck: Normal inspection. Neck supple. No lymph nodes noted. No crepitus CVS: Normal heart rate and rhythm. Pulses normal. Normal S1 and S2 Respiratory: No respiratory distress. Breath sounds normal. No Wheezing. No rales Abdomen: Soft and nontender. No rigidity. No distention. Skin: Skin warm and dry. Normal skin color. Normal skin turgor. Extremities: No lower extremity edema. No Lacerations. No Rash Neuro: Oriented X 3. No motor deficit. No sensory deficit. Moving all extremities. No slurred speech. CN 2 through 12 grossly intact Psych: calm, cooperative, normal affect Vital Signs: Vital Signs - 24 hr 05/09/25 20:19 Temperature 97.8 F Pulse Rate 86 Respiratory Rate 18 Blood Pressure 110/80 Pulse Oximetry 97 Oxygen Delivery Method Room Air BMI result Body Mass Index 19.2 Course Course Course Narrative: patient complaining of chest pain to specific spots on the chest. Denies shortness of breath, denies URI symptoms, denies any trauma. All of patient's labs and imaging pending Medical Decision Making Medical Decision Making MDM Narrative: my interpretation of EKG: Normal sinus rhythm, heart rate 71, no ST segment depression or elevation, no T-wave inversion, QTC 404 my interpretation of labs: No significant abnormality patient's hematology and chemistry, troponin negative, LFTs within normal limits, serology negative for influenza RSV and COVID chest x-ray does not show any acute abnormality. Patient's symptoms less likely to be of cardiac or pulmonary origin. Most likely a musculoskeletal Differential Diagnosis Differential Diagnoses: The differential diagnosis associated with the presentation includes ( ACS, palpitations, muscle spasms, pleurisy, costochondritis) Lab Data MDM Lab Attestation statement: I reviewed the patient's lab results. 05/09/25 20:45 05/09/25 20:48 Labs: Lab Results 05/09/25 05/09/25 05/09/25 Range/Units 20:45 20:47 20:48 WBC 9.4 (4.8-10.8) X10*3/uL RBC 4.88 (4.60-5.80) X10*6/uL Hgb 14.8 (14.0-18.0) g/dl Hct 44.5 (42.0-52.0) % MCV 91.2 (80.0-98.0) fL MCH 30.3 (27.0-33.0) pg MCHC 33.3 (31.0-36.0) g/dl RDW 12.3 (11.0-16.0) % Plt Count 220 (160-400) X10*3/uL MPV 9.7 (9.4-12.4) fL Immature Gran % (Auto) 0.2 (0.0-0.4) % Neut % (Auto) 46.3 (45-73) % Lymph % (Auto) 37.9 (20-40) % Coleman % (Auto) 9.9 (2-11) % Eos % (Auto) 4.7 H (0-4) % Baso % (Auto) 1.0 (0-2) % Lymph # (Auto) 3.6 (1.2-4.9) X10*3/uL Coleman # (Auto) 0.9 (0.1-1.2) X10*3/uL Eos # (Auto) 0.4 (0.0-0.4) X10*3/uL Baso # (Auto) 0.1 (0.0-0.2) X10*3/uL Abs Immat Gran (auto) 0.02 (0.00-0.03) X10*3/uL Absolute Neuts (auto) 4.4 (2.0-8.3) x10*3/uL Absolute Nucleated RBC 0.000 (0.0-0.012) X10*3/uL Nucleated RBC % (auto) 0.0 (0.0-0.2) /100WBC PT 10.5 L (11.2-13.5) SEC INR 0.9 (0.9-1.1) APTT 29.9 (26.7-34.1) SEC Sodium 140 (135-145) mmol/L Potassium 4.1 (3.3-5.1) mmol/L Chloride 107 (96-108) mmol/L Carbon Dioxide 25 (22-29) mmol/L Anion Gap 12 (12-20) BUN 18 H (9-16) mg/dL Creatinine 0.97 (0.5-1.4) mg/dL Estim Creat Clear Calc 92.7 Estimated GFR > 60 Random Glucose 90 (60-115) mg/dL Calcium 8.9 D (8.4-10.2) mg/dL Magnesium 2.0 (1.6-2.6) mg/dL Total Bilirubin 0.3 (0.0-1.0) mg/dL AST 27 (5-37) U/L ALT 23 (0-40) U/L Alkaline Phosphatase 64 (39-117) U/L Troponin I High Sens < 2.7 (<3.5-35.0) ng/L Total Protein 6.8 (6.5-8.0) g/dL Albumin 4.4 (3.5-5.0) g/dL Influenza Type A (PCR) NEGATIVE (Negative) Influenza Type B (PCR) NEGATIVE (Negative) RSV RNA Qual (PCR) NEGATIVE (Negative) SARS-CoV-2 RNA (RT-PCR) NEGATIVE (Negative) Independent Interpretation I performed an independent interpretation of an: Plain X-Ray Radiology Impression Discussion of test interpretation with radiology: I have reviewed the radiologist's reading. Radiologist Impression: Heart size is normal. No consolidation or effusion. No acute fracture. The visualized upper abdomen is unremarkable. Discharge Plan Discharge Clinical Impression: Atypical chest pain Patient Disposition: Home, Self-Care Instructions: Chest Pain (ED) Additional Instructions: Please follow-up with your primary care physician tomorrow. If you have any worsening or new symptoms, please return to the emergency room or call 911 Prescriptions: No Action doxycycline monohydrate 100 mg capsule 100 mg PO BID 7 Days Qty: 14 0RF ibuprofen 600 mg tablet 600 mg PO Q6H PRN (Reason: pain) Qty: 30 0RF acetaminophen [Tylenol Extra Strength] 500 mg tablet 1,000 mg PO Q8H PRN (Reason: fever or pain) Qty: 30 0RF albuterol sulfate 90 mcg/actuation HFA aerosol inhaler 2 puff inhalation Q4-6H PRN (Reason: shortness of breath or wheezing) Qty: 8.5 0RF amoxicillin 500 mg tablet 500 mg PO Q8H Qty: 21 0RF ondansetron HCl 4 mg tablet 4 mg PO Q8H PRN (Reason: nausea and vomiting) Qty: 10 0RF erythromycin 5 mg/gram (0.5 %) ointment 1 appl ophthalmic (eye) Q6H Qty: 3.5 0RF Print Language: Paraguayan
[2025-05-09 22:41] VITALS: BP 110/80; PULSE 86; RESP 18; TEMP 36.6; O2SAT 97
== END 2025-05-09 22:42 | disposition home or self-care (01) ==
PROVIDERS: Emergency Provider Emergency Medicine; PCP Internal Medicine
DX: R07.89 Other chest pain (principal); R06.02 Shortness of breath; Z03.818 Encounter for observation for suspected exposure to other biological agents ruled out; Z79.899 Other long term (current) drug therapy
CPT/HCPCS: 36415; 71046; 80053; 83735; 84484; 85025; 85610; 85730; 87637; 93005; 99283

== ENCOUNTER → 2025-05-09 20:35 | Outpatient (BNV) | payer OTHER, SELFPAY | PROVIDERS: Emergency Provider Emergency Medicine; PCP Internal Medicine; Visit Provider Internal Medicine Cardiovascular Disease | DX: R07.9 Chest pain, unspecified (principal); R06.02 Shortness of breath | CPT/HCPCS: 93010 ==

== ENCOUNTER 2025-05-31 09:39 | Outpatient (AMB) | payer OTHER, SELFPAY ==
[2025-05-31 09:49] VITALS: BP 122/60; PULSE 110; RESP 18; O2SAT 98; BMI 19.2
--- NOTE | 2025-05-31 09:49 | A.OFFPC_ITS ---
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 Accompanied by: Self / Same As Patient Allergies No Known Allergies Allergy (Verified 05/31/25 09:49) Medication List - Last Reconciled 05/31/25 by Nate Aranda MD acetaminophen (Tylenol Extra Strength) 1,000 mg (2 x 500 mg) PO Q8H PRN albuterol sulfate 90 mcg/actuation 2 puffs inhalation Q4-6H PRN ibuprofen 600 mg PO Q6H PRN Tobacco use date assessed: 05/31/25 Dental Screening Dental Screen Date: 05/31/25 Did you have a dental visit in the last 12 months?: No Did you have a dental problem in the last 6 months where you did not have access to dental care?: No Was dental information given to patient?: Patient has dentist HPI HPI Comments History of Present Illness Details The patient is a 29 year old male with PMH of TUD, MJ use disorder, Anxiety and depression presenting to establish care and to discuss his depressed mood. He has no prior primary care physician. He reports he has a persistent stye, which initially caused him significant worry about potential STDs, leading to multiple emergency department visits including one on 05/09/2025 for atypical chest pain. Workup at that time included a normal CBC, CMP, EKG and a negative c hest X-ray. For the stye, he was treated with two different antibiotics, which resolved a purulent discharge, but the swelling persists. He was advised to use warm compresses. The patient self-identifies as depressed, reporting a short temper, mood changes, and feeling overwhelmed. 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 He denies any suicidal or homicidal ideation. Regarding substance use, he quit smoking cigarettes approximately 1.5 months ago, having previously smoked a pack every three days. He now smokes 3-5 cigarettes per week, typically when upset, and reports experiencing headaches from nicotine withdrawal. He also smokes two marijuana joints daily.. He drinks alcohol infrequently. He reports experiencing shortness of breath but denies frequent asthma attacks. He denies any history of surgeries. Family history is notable for breast cancer in an aunt and heart disease in two aunts in their 50s and 60s. [facility] Social History Alcohol intake: current Substance Use Type: Marijuana Questionnaire PHQ-9 Over the last 2 weeks, how often have you been bothered by any of the following problems? 1. Little interest or pleasure in doing things: several days 2. Feeling down, depressed, or hopeless: several days 3. Trouble falling or staying asleep, or sleeping too much: several days 4. Feeling tired or having little energy: several days 5. Poor appetite or overeating: several days 6. Feeling bad about yourself - or that you are a failure or have let yourself or your family down: several days 7. Trouble concentrating on things, such as reading the newspaper or watching television: not at all 8. Moving or speaking so slowly that other people could have noticed. Or the opposite - being so fidgety or restless that you have been moving around a lot more than usual: not at all 9. Thoughts that you would be better off or of hurting yourself in some way: not at all Total score: 6 Depression Screening Interpretation: Positive Depression Screening Follow-up: New Medication prescribed Depression Screening Done: Yes Source: Developed by Drs. Reji Aguirre, Judith Reddy, Ciro Sanchez and colleagues, with an educational francisco javier from [employer]. Thrive Questionnaire Date Thrive assessed: 05/31/25 I am a: Patient What is your living situation today?: I do not have a steady places to live I am temporarily staying with others Within the past 12 months, did the food you bought not last and you didn't have the money to get more?: Sometimes True Within the past 12 months, did you worry whether your food would run out before you got money to buy more?: Sometimes True Do you have trouble paying for medicines?: No Do you have trouble getting transportation to medical appointments?: Yes Do you have trouble paying your heating and electricity bill?: I choose not to answer this question Do you have trouble taking care of your child, family member or friend?: No Do you have trouble with day-to-day activities such as bathing, preparing meals, shopping, managing finances, etc.?: No Are you currently unemployed and looking for a job?: Yes Are you interested in more education?: No Please select the resources that you would like help with: Housing/Longterm, Food, Transportation and Job search/training Currently or been in a relationship where the following occur: I choose not to answer THRIVE Score: 4 AUDIT C Alcohol Use Questionnaire (AUDIT-C) 1. How often do you have a drink containing alcohol?: Monthly or less 2. How many drinks containing alcohol do you have on a typical day when you are drinking?: 3 or 4 3. How often do you have six or more drinks on one occasion?: Less than monthly Total Score: 3 RUSLAN-7 AMB Questionnaire RUSLAN-7 Date RUSLAN - 7 assessed: 05/31/25 Feeling nervous, anxious, or on edge: 1 = Several days Not being able to stop or control worryin = Several days Worrying too much about different things: 1 = Several days Trouble relaxin = Several days Being so restless that it is hard to sit still: 0 = Not at all Becoming easily annoyed or irritable: 2 = More than half the days Feeling afraid as if something awful might happen: 2 = More than half the days Total RUSLAN-7 score (0-4 normal; 5-9 mild; 10-14 moderate; 15-21 severe): 8 Source: Developed by Drs. Reji Aguirre, Judith Reddy, Ciro Sanchez and colleagues, with an educational francisco javier from [employer]. Review of Systems Const Details: Positives besides what was mentioned in HPI are in BOLD Constitutional: No Weight Change, No Fever, No Chills, No Night Sweats, No Fatigue, No Malaise ENT/Mouth: No Hearing Changes, No Ear Pain, No Nasal Congestion, No Sinus Pain, No Hoarseness, No sore throat, No Rhinorrhea, No Swallowing Difficulty Eyes: No Eye Pain, No Swelling, No Redness, No Foreign Body, No Discharge, No Vision Changes Cardiovascular: No Chest Pain, No SOB, No PND, No Dyspnea on Exertion, No Orthopnea, No Claudication, No Edema, No Palpitations Respiratory: No Cough, No Sputum, No Wheezing, No Smoke Exposure, No Dyspnea Gastrointestinal: No Nausea, No Vomiting, No Diarrhea, No Constipation, No Pain, No Heartburn, No Anorexia, No Dysphagia, No Hematochezia, No Melena, No Flatulence, No Jaundice Genitourinary: No Dysmenorrhea, No DUB, No Dyspareunia, No Dysuria, No Urinary Frequency, No Hematuria, No Urinary Incontinence, No Urgency, No Flank Pain, No Urinary Flow Changes, No Hesitancy Musculoskeletal: No Arthralgias, No Myalgias, No Joint Swelling, No Joint Stiffness, No Back Pain, No Neck Pain, No Injury History Skin: No Skin Lesions, No Pruritis, No Hair Changes, No Breast/Skin Changes, No Nipple Discharge Neuro: No Weakness, No Numbness, No Paresthesias, No Loss of Consciousness, No Syncope, No Dizziness, No Headache, No Coordination Changes, No Recent Falls Psych: No Anxiety/Panic, No Depression, No Insomnia, No Personality Changes, No Delusions, No Rumination, No SI/HI/AH/VH, No Social Issues, No Memory Changes, No Violence/Abuse Hx., No Eating Concerns Heme/Lymph: No Bruising, No Bleeding, No Transfusions History, No Lymphadenopathy Endocrine: No Polyuria, No Polydipsia, No Temperature Intolerance Physical exam (Primary Care) Vital Signs: Last Vital Signs Pulse 110 H 05/31/25 09:49 Resp 18 05/31/25 09:49 BP 122/60 05/31/25 09:49 Pulse Ox 98 05/31/25 09:49 Oxygen Delivery Method Room Air 05/31/25 09:49 BMI result Body Mass Index 19.2 Tobacco/Smoking Status: Tobacco use Status Tobacco use date assessed 05/31/25 05/31/25 09:57 PHQ-9: PHQ-9 Score PHQ-9: Total score 6 05/31/25 10:29 Depression Screening Interpretation: Positive Depression Screening Follow-up: New Medication prescribed Thrive Assessment: Date of Thrive Assessment Date Thrive assessed 05/31/25 12 09:57 Currently or been in a relationship where the following occur: I choose not to answer Const Other: Pertinent findings are in BOLD GENERAL APPEARANCE NAD, activity normal for age, well developed/ well nourished, no cyanosis, pallor, or diaphoresis. EYES lids/conjunctiva normal. EARS/NOSE/THROAT Mucous membranes moist, nares normal, lips/teeth normal uvula midline without oral pharyngeal erythema, exudate or swelling TMs normal bilaterally. No lymphangitis/lymphedema. HEAD/NECK normocephalic atraumatic, no facial trauma, neck is supple. RESPIRATORY respiratory effort normal, speaks in full sentences, no tripod position, no accessory muscle use. Lungs clear to auscultation without rhonchi, wheezes, rales CARDIAC Regular rate and rhythm, no edema. ABDOMINAL Soft, ND/NT. No evidence of fluid wave. No pulsatile masses on exam, rebound tenderness, Parker sign or pain over Mcburney's point. MUSCLES/EXTREMITIES No abnormal range of motion, no swelling. SKIN Warm, pink and dry. No rashes, dermatoses, petechiae or lesions. NEUROLOGICAL Speech is clear and appropriate. Normal level of consciousness. Gait and coordination are normal. 5/5 strength in all extremities. PSYCH Normal mood and affect. Judgement/competence is appropriate Coding Level of Care Code New Pt Level 4 (85918) Diagnoses Anxiety F41.9 Current moderate episode of major depressive disorder, unspecified whether recurrent F32.1 Depression Type: major depressive disorder Major depression recurrence: unspecified whether recurrent Active/Remission status: currently active Major depression episode severity: moderate Marijuana dependence F12.20 Asthma, unspecified asthma severity, unspecified whether complicated, unspecified whether persistent J45.909 Asthma severity: unspecified severity Asthma persistence: unspecified Asthma complication type: unspecified Assessment & Plan Assessment & Plan (1) Anxiety: Code(s): F41.9 - Anxiety disorder, unspecified Category: Medical Plan: - The patient self-identifies as depressed, with symptoms including short temper and mood changes, exacerbated by unemployment and caregiver stress. - Prescribed fluoxetine 10 mg daily. - Placed referrals to psychiatry and for counseling, emphasizing that a combination of medication and talk therapy is the best approach. - Plan to follow up in 6 weeks to assess medication efficacy and mood status. - Advised patient to call 911 if depressive symptoms become severe. - Denies any current SI or HI. (2) Depression: Code(s): F32.A - Depression, unspecified Category: Medical Qualifiers: Depression Type: major depressive disorder Major depression recurrence: unspecified whether recurrent Active/Remission status: currently active Major depression episode severity: moderate Qualified Code(s): F32.1 - Major depressive disorder, single episode, moderate Plan: Same as under Anxiety. (3) Marijuana dependence: Code(s): F12.20 - Cannabis dependence, uncomplicated Category: Medical Plan: - The patient smokes two marijuana joints daily and reports a high tolerance. - Counseled that while marijuana may provide short-term relief, it can worsen anxiety long-term and lead to dependence. - The ultimate goal is to significantly reduce or stop use. - Advised a gradual tapering strategy, such as reducing the amount over time or using a lower potency strain, to avoid withdrawal and worsening symptoms. (4) Asthma: Code(s): J45.909 - Unspecified asthma, uncomplicated Category: Medical Qualifiers: Asthma severity: unspecified severity Asthma persistence: unspecified Asthma complication type: unspecified Qualified Code(s): J45.909 - Unspecified asthma, uncomplicated Plan: - The patient reports shortness of breath but does not believe he has frequent asthma attacks and denies a prescription for albuterol. - Albuterol was discontinued from his chart. - The plan is to monitor his respiratory symptoms to see if they improve with mood treatment and substance use reduction before considering other interventions. Plan I discussed with the patient his feelings of depression and anxiety, which appear to be exacerbated by recent life stressors including job loss and caregiver responsibilities. I explained that the best approach involves a combination of medication and talk therapy, and accordingly, I have prescribed a starting dose of fluoxetine 10 mg daily and placed referrals for both psychiatry and counseling. We will follow up in six weeks to assess his response to the medication. I commended him on his significant reduction in cigarette smoking and offered future assistance with cessation aids if needed. We had a detailed discussion about his marijuana use. I explained that while it may feel helpful in the short term, it likely worsens his anxiety over time and creates dependency. I recommended a strategy of gradual reduction rather than abrupt cessation to minimize withdrawal effects, suggesting he could try reducing the amount or potency over time. Regarding his shortness of breath, I have discontinued albuterol from his chart as he does not use it, and we will monitor his symptoms as he begins treatment for his mood. I provided return precautions, advising him to call 911 or seek emergency care if he feels severely depressed. A follow-up visit for a full physical is planned in four months. Orders: Referrals Behavioral Health Referral F32.A - Depression, unspecified, F41.9 - Anxiety disorder, unspecified Psychiatry Referral F32.A - Depression, unspecified, F41.9 - Anxiety disorder, unspecified Medications: New fluoxetine (Prozac) 10 mg PO DAILY 60 caps 3RF Discontinued albuterol sulfate 90 mcg/actuation Discontinued Reason: Patient no longer taking 2 puffs inhalation Q4-6H PRN 8.5 grams 0RF shortness of breath or wheezing
== END 2025-05-31 10:42 | disposition home or self-care (01) ==
LOC: HO.HMCH 09:40
PROVIDERS: PCP Internal Medicine; Visit Provider Internal Medicine
DX: F41.9 Anxiety disorder, unspecified (principal); F32.1 Major depressive disorder, single episode, moderate; F12.20 Cannabis dependence, uncomplicated; J45.909 Unspecified asthma, uncomplicated

== ENCOUNTER → 2025-05-31 09:39 | Outpatient (BNVA) | payer OTHER, SELFPAY | PROVIDERS: Visit Provider Internal Medicine | DX: F32.1 Major depressive disorder, single episode, moderate (principal); F41.9 Anxiety disorder, unspecified; F12.20 Cannabis dependence, uncomplicated; J45.909 Unspecified asthma, uncomplicated | CPT/HCPCS: 99202 ==

== ENCOUNTER 2025-06-07 19:03 | Emergency (ER) | payer OTHER, SELFPAY ==
[2025-06-07 19:08] VITALS: BP 143/80; PULSE 92; RESP 18; TEMP 36.6; O2SAT 98; BMI 19.0
--- NOTE | 2025-06-07 19:09 | ED.GENADULT ---
HPI - General Adult General Chief complaint: Urogenital-Male Stated complaint: lesion on genitals Time Seen by Provider: 06/07/25 20:47 Source: patient Limitations: no limitations History of Present Illness ED Provider: Sigrid Painter PA-C HPI narrative: 29-year-old male presents with new penile lesions x2 days. Patient states he noted painful ?blisters?, on his penis, some ruptured, the underlying skin is red. Associated dysuria. Denies penile discharge, abdominal pain, testicular pain, redness or swelling. Patient states he does have risk factors for STD exposure. Related Data Previous Rx's ?Medication ?Instructions ?Recorded acetaminophen 500 mg tablet 1,000 mg (2 x 500 mg) PO Q8H PRN 10/10/24 (Tylenol Extra Strength) fever or pain #30 tabs ibuprofen 600 mg tablet 600 mg PO Q6H PRN pain #30 tabs 10/10/24 fluoxetine 10 mg capsule (Prozac) 10 mg PO DAILY #60 caps 05/31/25 valacyclovir 1 gram tablet 1,000 mg PO Q12H #19 tabs 06/07/25 Allergies Allergy/AdvReac Type Severity Reaction Status Date / Time No Known Allergies Allergy Verified 06/07/25 19:11 Review of Systems Review of Systems: Yes all other systems are reviewed and are negative Constitutional: Constitutional: Denies fatigue and Denies fever(s) Cardiovascular: Cardiovascular: Denies chest pain and Denies dyspnea Respiratory: Respiratory: Denies cough and Denies dyspnea Gastrointestinal: Gastrointestinal: Denies abdominal pain, Denies nausea and Denies vomiting Genitourinary: Genitourinary: Denies hematuria, Reports genital lesions, Reports genital pain, Reports dysuria, Denies penile discharge and Denies testicular pain Musculoskeletal: Musculoskeletal: Denies back pain Endocrine: Endocrine: Denies fatigue [facility] Past Medical History Attestation statement: The following information was validated with the patient. Social History Social History Alcohol intake: current Substance Use Type: Marijuana Advance Directives: No Advance Directives Information Provided: No Physical Exam ED Vital Signs: Vital Signs - 24 hr 06/07/25 19:08 06/07/25 22:32 Temperature 97.9 F 97.9 F Pulse Rate 92 92 Respiratory Rate 18 18 Blood Pressure 143/80 H 143/80 H Pulse Oximetry 98 98 Oxygen Delivery Method Room Air Room Air BMI result Body Mass Index 19.0 Const Other: Alert well-appearing Orientation/consciousness: patient oriented x3 Resp Effort & Inspection: normal respiratory effort Cardio Other: Normal peripheral perfusion GI Other: Nontender no distention Other: No active vesicular lesions, the region where 1 of the lesions ruptured is erythematous, no active penile discharge, no scrotal swelling, redness or warmth. Skin Other: Warm dry no rash Neuro General: patient oriented x3, gait normal, no focal motor deficits and CN's II-XI intact bilaterally Psych Other: Cooperative Course Course Course Narrative: Rapid medical examination performed in triage by Brooklyn Blancas PA-C: Patient is a 29 year old assigned male at presenting to the emergency department with lesions on his penis. Patient states that he found a couple of water bumps on his penis and is now having pain with urination. Detailed physical exam and review of systems are deferred to the ticker installer. Patient placed back in the waiting room pending room availability. Medications Administered Discontinued Medications Generic Name Dose Route Start Last Admin Trade Name Nelly PRN Reason Stop Dose Admin Azithromycin 1,000 mg 06/07/25 21:32 06/07/25 22:26 Azithromycin 500 Mg Tablet PO 06/07/25 21:33 1,000 mg ONCE ONE Administration Ceftriaxone Sodium 250 mg/ 0 mg 06/07/25 21:32 06/07/25 22:27 Lidocaine HCl 0.9 ml IM 06/07/25 21:33 250 kit ONCE ONE Administration Ondansetron HCl 8 mg 06/07/25 21:32 06/07/25 22:26 Ondansetron Odt 8 Mg Tab.Rapdis TRANSLINGU 06/07/25 21:33 8 mg ONCE ONE Administration Valacyclovir HCl 1,000 mg 06/07/25 21:32 06/07/25 22:26 Valacyclovir Hcl 1,000 Mg Tablet PO 06/07/25 21:33 1,000 mg ONCE ONE Administration Medical Decision Making Medical Decision Making [facility] Narrative: 29-year-old male presents with new penile lesions x2 days. Patient states he noted painful ?blisters?, on his penis, some ruptured, the underlying skin is red. Associated dysuria. Denies penile discharge, abdominal pain, testicular pain, redness or swelling. Patient states he does have risk factors for STD exposure. Problem: STD exposure History: Per patient I have considered the following differential diagnoses: HSV, syphilis chancre, gonorrhea, chlamydia, urethritis, epididymitis, orchitis, urinary tract infection, pyelonephritis, renal colic Plan: Urinalysis completed, he is passing blood, but no infection, he has testing pending for gonorrhea and chlamydia and syphilis, I am adding on HSV screening. He does not have an active lesion to sample, these we will be serum labs. We are empirically treating him for suspect urethritis and HSV. He is not having any back or belly pain to suggest pyelonephritis or renal colic, and again his urine is not infected. He does not require imaging. I have independently reviewed the following tests: Labs: Urine has hematuria no infection, gonorrhea chlamydia syphilis and HSV testing pending Differential Diagnosis Differential Diagnoses: The differential diagnosis associated with the presentation includes See [facility] Admission/Observation Consideration of admission/observation: Escalation of care including admission/observation considered Not applicable Lab Data [facility] Lab Attestation statement: I reviewed the patient's lab results. Labs: Lab Results 06/07/25 Range/Units 19:38 Urine Color Yellow Urine Appearance Clear Urine pH 5.5 (5.0-9.0) Ur Specific [place] 1.015 (1.005-1.025) Urine Protein Negative (Neg-Trace) mg/dL Urine Glucose (UA) Negative (Negative) mg/dL Urine Ketones Trace (Negative) mg/dL Urine Blood Small (1+) H (Negative) Urine Nitrite Negative (Negative) Ur Leukocyte Esterase Negative (Negative) Urine RBC >20 H (0-2) /HPF Urine WBC 0-5 (0-5) /HPF Ur Squamous Epith Cells 0-2 (0-2) /HPF Urine Bacteria None Seen (None Seen) Hyaline Casts 0-2 (0-2) /LPF Discharge Plan Discharge Clinical Impression: Exposure to STD, Dysuria Patient Disposition: Home, Self-Care Instructions: Genital Herpes Infection (ED), Dysuria (ED) Additional Instructions: The lesions on your penis are suspicious for a herpes infection. I have provided you with information to read about. You should abstain from sexual contact until your testing returns, and you complete treatment. Given your symptoms, you were empirically treated for potential concurrent gonorrhea and chlamydia infection. You have testing pending, it will results within the next few days. You can access results via the patient portal. In the meantime, take the valacyclovir as directed. Prior herpes simplex testing that you had in March of this year, was negative. Prescriptions: New valacyclovir 1 gram tablet 1,000 mg PO Q12H Qty: 19 0RF No Action ibuprofen 600 mg tablet 600 mg PO Q6H PRN (Reason: pain) Qty: 30 0RF acetaminophen [Tylenol Extra Strength] 500 mg tablet 1,000 mg PO Q8H PRN (Reason: fever or pain) Qty: 30 0RF fluoxetine [Prozac] 10 mg capsule 10 mg PO DAILY Qty: 60 3RF Interventions: ED Discharge Assessment Last Done: 06/07/25 22:32 Discharge Date/Time: 06/07/25 22:36 Print Language: Tamazight
[2025-06-07 19:44] LABS: Appearance Urine Clear; Glucose Urine UA Negative (Negative); PH 5.5 (5.0-9.0); Specific Gravity - Urine 1.015 (1.005-1.025); UMIC TRIGGER UACC YES
[2025-06-07] MEDS: cefTRIAXone sodium 250 MG, Lidocaine HCl 1 % MPF 0.9 ML IM (22:27)
[2025-06-07 22:32] VITALS: BP 143/80; PULSE 92; RESP 18; TEMP 36.6; O2SAT 98
[2025-06-07 23:48] LABS: CT PCR Urine NOT DETECTED (Not Detect.); NG PCR Urine NOT DETECTED (Not Detect.)
[2025-06-08 07:57] LABS: Syphilis Screen Nonreactive (Nonreactive)
== END 2025-06-07 22:36 | disposition home or self-care (01) ==
PROVIDERS: Physician Assistant Medical; Emergency Provider Emergency Medicine; PCP Internal Medicine
DX: R30.0 Dysuria (principal); N48.89 Other specified disorders of penis; Z20.2 Contact with and (suspected) exposure to infections with a predominantly sexual mode of transmission
CPT/HCPCS: 36415; 81001; 86695; 86696; 86780; 87491; 87591; 96372; 99282; 99284; J0696; J2003